=== PATIENT | female | born 1980 | race Caucasian/White ===

== ENCOUNTER 2018-09-04 22:58 | Emergency (ER) | payer BC, OTHER ==
[2018-09-04] MEDS ORDERED: IBUPROFEN 600 MG TAB PO STA (23:57)
[2018-09-04] MEDS ORDERED: ACETAMINOPHEN TAB 500 MG TAB PO STA (23:57)
[2018-09-04] MEDS ORDERED: MENTHOL (NICE) LOZENGE MUCOUS MEM STA (23:57)
[2018-09-04] MEDS ORDERED: BENZONATATE 100 MG CAP PO STA (23:57)
--- NOTE | 2018-09-05 01:17 | XR ---
EXAMINATION TYPE: XR chest 2V DATE OF EXAM: 09/05/2018 COMPARISON: NONE HISTORY: Chest pain TECHNIQUE: Frontal and lateral views of the chest are obtained. FINDINGS: Heart and mediastinum are normal. Lungs are clear. Diaphragm is normal. Bony thorax appear s normal. IMPRESSION: Normal chest
--- NOTE | 2018-09-05 02:05 | ED ---
URI HPI - General Chief Complaint: Upper Respiratory Infection Stated Complaint: Poss Flu Time Seen by Provider: 09/04/18 23:50 Source: patient Mode of arrival: ambulatory Limitations: no limitations - History of Present Illness Initial Comments: 38-year-old female patient presents to the emergency department today for evaluation of cough, sore throat, and fever. Patient states her daughter is currently being treated on the pediatric unit for influenza A. Patient states that she started with symptoms early this morning. Patient states have progressively worsened throughout the day. Patient is reporting a persistent cough with clear sputum production. Shows have history of asthma and has been taking her asthma medications as directed. She has been using her inhaler throughout the day. States that she has taken Mucinex for symptom relief. Denies taking antipyretic medication. She did have one episode of posttussive vomiting. Denies any abdominal pain, constipation, or diarrhea. Patient denies any recent rash, shortness breath, chest pain, abdominal pain, back pain, numbness, tingling, dizziness, weakness, hematuria, dysuria, urinary urgency, urinary frequency, headache, visual changes, or any other complaints. - Related Data Home Medications Medication Instructions Recorded Confirmed Albuterol Nebulized [Ventolin 2.5 mg INHALATION RT-QID PRN 09/04/18 09/04/18 Nebulized] Albuterol Sulfate [Proair Hfa] 2 puff INHALATION RT-QID PRN 09/04/18 09/04/18 Beclomethasone Dipropionate [Qvar 2 puff INHALATION RT-BID 09/04/18 09/04/18 80 mcg] Benzonatate [Tessalon Perles] 100 mg PO TID PRN 09/04/18 09/04/18 Budesonide [Budesonide Nasal Jenners] 1 spray EA NOSTRIL BID 09/04/18 09/04/18 Labetalol [Trandate] 100 mg PO BID 09/04/18 09/04/18 Loratadine 10 mg PO DAILY 09/04/18 09/04/18 Szq-Htcq-Hllvq Acid 1 cap PO DAILY 09/04/18 09/04/18 [-U Capsule (formulary)] guaiFENesin [Mucinex] 1,200 mg PO Q12H 09/04/18 09/04/18 Previous Rx's Medication Instructions Recorded Benzonatate [Tessalon Perles] 100 mg PO TID #15 cap 09/05/18 Oseltamivir [Tamiflu] 75 mg PO Q12HR #10 cap 09/05/18 Allergies Allergy/AdvReac Type Severity Reaction Status Date / Time mushroom Allergy Swelling Verified 09/04/18 23:19 Review of Systems ROS Statement: Those systems with pertinent positive or pertinent negative responses have been documented in the HPI. ROS Other: All systems not noted in ROS Statement are negative. Past Medical History Past Medical History: Asthma, Hypertension Additional Past Medical History / Comment(s): allergies. chronic sinusitis. gestational diabetes. History of Any Multi-Drug Resistant Organisms: None Reported Past Surgical History: Section Past Psychological History: No Psychological Hx Reported Smoking Status: Never smoker Past Alcohol Use History: None Reported Past Drug Use History: None Reported General Exam Limitations: no limitations General appearance: alert, in no apparent distress, other (This is a well- developed, well-nourished adult female patient in no acute distress. Vital signs upon presentation are temperature 103.1F, pulse 124, respirations 20, blood pressure 154/83, pulse ox 96% on room air.) Eye exam: Present: normal appearance, PERRL, EOMI. Absent: scleral icterus, conjunctival injection, periorbital swelling ENT exam: Present: normal exam, normal oropharynx, mucous membranes moist, TM's normal bilaterally Respiratory exam: Present: normal lung sounds bilaterally. Absent: respiratory distress, wheezes, rales, rhonchi, stridor Cardiovascular Exam: Present: normal rhythm, tachycardia, normal heart sounds. Absent: systolic murmur, diastolic murmur, rubs, gallop, clicks GI/Abdominal exam: Present: soft, normal bowel sounds. Absent: distended, tenderness, guarding, rebound, rigid Neurological exam: Present: alert, oriented X3, CN II-XII intact Psychiatric exam: Present: normal affect, normal mood Skin exam: Present: warm, dry, intact, normal color. Absent: rash Course Vital Signs 09/04/18 09/05/18 09/05/18 23:03 01:00 02:21 Temperature 103.1 F H 99.3 F 98.9 F Pulse Rate 124 H 101 H 77 Respiratory 20 20 18 Rate Blood Pressure 154/83 138/78 133/74 O2 Sat by Pulse 96 97 98 Oximetry Medical Decision Making - Medical Decision Making 38-year-old female patient presents to the emergency department today for evaluation of cough, nasal congestion, sore throat and fever. Physical examination reveals clear equal lung sounds. Pharyngeal erythema. Patient did have temperature 103F upon arrival. She was tachycardic with this. Influenza testing was positive. Chest x-ray showed no acute cardio pulmonary process. Patient does report symptom improvement with antipyretic medication and Tessalon Perles. She was educated regarding side effects and efficacy of Tamiflu. She does request to receive this medication. She'll be discharged home at this time with prescription for Tamiflu, Tessalon Perles, and education regarding supportive care. Return parameters were discussed in detail. She verbalizes understanding and agrees with this plan. - Lab Data Lab Results 09/04/18 Range/Units 23:28 Influenza Type A RNA Detected H (Not Detectd) Influenza Type B (PCR) Not Detected (Not Detectd) - Radiology Data Radiology results: report reviewed, image reviewed Two-view x-ray of the chest is obtained. Report is reviewed in its entirety. Impression by Dr. Mccormick shows heart and mediastinum are normal. Lungs are clear. Diaphragm is normal. Bony thorax appears normal. Normal chest. Disposition Clinical Impression: Influenza A Disposition: HOME SELF-CARE Condition: Good Instructions (If sedation given, give patient instructions): Influenza (ED) Additional Instructions: Increase fluids. Take Tylenol Motrin for fever control. Use rocy-dkp-qejlasu nasal decongestants to aid with symptom relief. Complete medications as prescribed. Follow-up with your primary care physician for recheck in 1-2 days. Return to the emergency department immediately for any new, worsening, or concerning symptoms. Prescriptions: Benzonatate [Tessalon Perles] 100 mg PO TID #15 cap Oseltamivir [Tamiflu] 75 mg PO Q12HR #10 cap Is patient prescribed a controlled substance at d/c from ED?: No Referrals: Los Epps MD [Primary Care Provider] - 1-2 days Time of Disposition: 02:05
[2018-09-05 02:22] VITALS: BP 133/74; PULSE 77; RESP 18; TEMP 98.9
== END 2018-09-05 02:22 | disposition home or self-care (01) ==
LOC: EC 22:58
DX: J10.1 Influenza due to other identified influenza virus with other respiratory manifestations (principal); R00.0 Tachycardia, unspecified; J45.909 Unspecified asthma, uncomplicated; I10 Essential (primary) hypertension; Z79.51 Long term (current) use of inhaled steroids; Z79.899 Other long term (current) drug therapy; Z91.018 Allergy to other foods
CPT/HCPCS: 71046; 87502; 99283

== ENCOUNTER → 2018-09-29 | Outpatient (CLI) | payer BC | END | disposition home or self-care (01) | LOC: LABPAT 11:33 | PROVIDERS: ATTEND Otolaryngology | DX: Z01.818 Encounter for other preprocedural examination (principal); I10 Essential (primary) hypertension | CPT/HCPCS: 93005 ==

== ENCOUNTER → 2019-01-03 | Outpatient (CLI) | payer BC ==
[2019-01-03 17:05] LABS: HCT 38.2 % (34.0-46.0); HGB 12.6 gm/dL (11.4-16.0); Mean Platelet Volume 7.7; Platelet Count 345 k/uL (150-450); RBC 4.35 m/uL (3.80-5.40); RDW 13.2 % (11.5-15.5); WBC 7.1 k/uL (3.8-10.6)
[2019-01-03 18:21] LABS: Eosinophils # (M) 0.07 k/uL (0-0.7); Lymphocytes # (M) 1.56 k/uL (1.0-4.8); Monocytes # (M) 0.43 k/uL (0-1.0); Neutrophils # (M) 5.04 k/uL (1.3-7.7); Neutrophils % (M) 71 %; Nucleated Red Blood Cells 0 /100 WBC (0-0); Total Cells Counted 100
[2019-01-03 18:22] LABS: Polychromasia Present
[2019-01-04 01:25] LABS: Immunoglobulin E 20.8 IU/mL (0.00-114.00)
== END | disposition home or self-care (01) ==
LOC: LABWHC1 16:20
PROVIDERS: ATTEND Allergy & Immunology
DX: J45.40 Moderate persistent asthma, uncomplicated (principal)
CPT/HCPCS: 36415; 82784; 82785; 85025

== ENCOUNTER → 2019-05-23 | Outpatient (CLI) | payer BC ==
--- NOTE | 2019-05-24 10:09 | MM ---
Reason for exam: screening (asymptomatic). Baseline mammogram. History: Patient had first child at age 37. Family history of breast cancer in maternal grandmother. Took hormonal contraceptives for 15 years. Took other hormone for 1 year 2 months. Physical Findings: Nurse did not find any significant physical abnormalities on exam. MG Screening Mammo w CAD Bilateral CC and MLO view(s) were taken. There are scattered fibroglandular densities. No suspicious abnormality. These results were verbally communicated with the patient and result sheet given to the patient on 05/23/19. ASSESSMENT: Negative, BI-RAD 1 RECOMMENDATION: Routine screening mammogram of both breasts in 1 year.
== END | disposition home or self-care (01) ==
LOC: RADMAMWWP 13:32
PROVIDERS: ATTEND Obstetrics & Gynecology
DX: Z12.31 Encounter for screening mammogram for malignant neoplasm of breast (principal)
CPT/HCPCS: 77067

== ENCOUNTER 2019-10-26 15:51 | Outpatient (CLI) | payer BC | END 2019-10-26 17:15 | disposition home or self-care (01) | LOC: FBPOP 15:51 | PROVIDERS: ATTEND Obstetrics & Gynecology | DX: O99.810 Abnormal glucose complicating pregnancy (principal); Z3A.00 Weeks of gestation of pregnancy not specified | CPT/HCPCS: 59025 ==

== ENCOUNTER 2019-11-06 10:10 | Outpatient (CLI) | payer BC ==
[2019-11-06 10:51] LABS: Glucose,Whole Blood 95 mg/dL (75-99)
[2019-11-06 11:15] VITALS: BP 130/67; PULSE 85; RESP 16; TEMP 97.9
--- NOTE | 2019-11-06 11:48 | US ---
EXAMINATION TYPE: US OB BPP wo non-stress DATE OF EXAM: 11/06/2019 COMPARISON: NONE CLINICAL HISTORY: Non-reactive NST. Third trimester . EXAM PERFORMED: Transabdominal (TA) BPP PARAMETERS: HEART RATE: 140 bpm RHYTHM: Normal HARRY: 10.1 cm DIAPHRAGM IMAGED: Yes BPP SCORIN. Breathin (1 episode of breathing of 30 second duration in 30 minutes of scanning time) 2. Movement: 2 (at least 3 discrete body movements in 30 minutes) 3. Tone: 2 (1 episode of active flexion/extension of limb) 4. HARRY: 2 (HARRY index > 5cm) TOTAL SCORE: 8 / 8 Impression: Normal biophysical profile.
== END 2019-11-06 11:58 | disposition home or self-care (01) ==
LOC: FBPOP 10:10
PROVIDERS: ATTEND Obstetrics & Gynecology
DX: O24.419 Gestational diabetes mellitus in pregnancy, unspecified control (principal); Z3A.00 Weeks of gestation of pregnancy not specified
CPT/HCPCS: 59025; 76819

== ENCOUNTER 2019-11-08 09:41 | Outpatient (CLI) | payer BC | END 2019-11-08 10:15 | disposition home or self-care (01) | LOC: FBPOP 09:41 | PROVIDERS: ATTEND Obstetrics & Gynecology | DX: O24.419 Gestational diabetes mellitus in pregnancy, unspecified control (principal); Z3A.00 Weeks of gestation of pregnancy not specified | CPT/HCPCS: 59025 ==

== ENCOUNTER 2019-12-07 06:00 | Inpatient (IN) | payer BC ==
[2019-12-07 06:28] LABS: Glucose,Whole Blood 94 mg/dL (75-99)
[2019-12-07] MEDS ORDERED: OXYTOCIN 10 UNIT/ML 1 ML VIAL IM PRN (06:49)
[2019-12-07] MEDS ORDERED: METHYLERGONOVINE 0.2 MG/ML 1 ML AMP IM PRN (06:49)
[2019-12-07] MEDS ORDERED: CARBOPROST TROMETHAMINE 250 MCG/ML 1 ML AMP IM PRN (06:49)
[2019-12-07] MEDS ORDERED: LIDOCAINE 0.5% (PF) 5 MG/ML (50 ML SDV) SQ PRN (06:49)
[2019-12-07] MEDS ORDERED: TERBUTALINE 1 MG/ML VIAL SQ PRN (06:49)
[2019-12-07 06:59] LABS: Basophils % (A) 0 %; Eosinophils # (A) 0.1 k/uL (0-0.7); Eosinophils % (A) 1 %; HCT 35.5 % (34.0-46.0); Lymphocytes # (A) 1.4 k/uL (1.0-4.8); Lymphocytes % (A) 14 %; MCH 30.2 pg (25.0-35.0); MCHC 33.9 g/dL (31.0-37.0); MCV 89.2 fL (80.0-100.0); Mean Platelet Volume 8.8; Monocytes # (A) 0.4 k/uL (0-1.0); Monocytes % (A) 4 %; Neutrophils # (A) 7.9 k/uL (1.3-7.7); Neutrophils % (A) 78 %; Platelet Count 214 k/uL (150-450); RBC 3.98 m/uL (3.80-5.40); RDW 15.2 % (11.5-15.5); WBC 10.1 k/uL (3.8-10.6)
[2019-12-07] MEDS ORDERED: OXYTOCIN 30 UNITS/500 ML NS 30 UNIT in SALINE 1 500ML.BAG IV SCH (07:00)
--- NOTE | 2019-12-07 07:34 | P.HPOB ---
History of Present Illness H&P Date: 12/07/19 Chief Complaint: Normal labor 39-year-old presents for induction of labor at 39 weeks. Her cervix is once and redundant, 70% effaced, and -2 station. She is ed irregularly. heart tones 130 with moderate variability and reactive. Review of Systems All systems: negative Constitutional: Denies chills, Denies fever Eyes: denies blurred vision, denies pain Ears, nose, mouth and throat: Denies headache, Denies sore throat Cardiovascular: Denies chest pain, Denies shortness of breath Respiratory: Denies cough Gastrointestinal: Denies abdominal pain, Denies diarrhea, Denies nausea, Denies vomiting Genitourinary: Denies dysuria, Denies hematuria Musculoskeletal: Denies myalgias Integumentary: Denies pruritus, Denies rash Neurological: Denies numbness, Denies weakness Psychiatric: Denies anxiety, Denies depression Endocrine: Denies fatigue, Denies weight change Past Medical History Past Medical History: Asthma, Hypertension Additional Past Medical History / Comment(s): Obstetrical history first she had a vasa previa with velamentous cord insertion was delivered at 35 weeks and 6 days with a section. This is her second . She's had care with me since the first trimester. Blood type is O+, antibodies negative, rubella immune, hepatitis B negative, RPR nonreactive, HIV negative. She was diagnosed with gestational diabetes and has been followed by maternal medicine. She is on insulin 4 times a day. Sugars have been well-controlled. She also has underlying hypertension and has been on labetalol 100 mg twice daily. History of Any Multi-Drug Resistant Organisms: None Reported Past Surgical History: Adenoidectomy, Section Additional Past Surgical History / Comment(s): daniel Past Anesthesia/Blood Transfusion Reactions: No Reported Reaction Past Psychological History: No Psychological Hx Reported Smoking Status: Former smoker Past Alcohol Use History: None Reported Additional Past Alcohol Use History / Comment(s): brief period of smoking as a teenager Past Drug Use History: None Reported - Past Family History Father Family Medical History: AFIB, Cancer Mother Family Medical History: Diabetes Mellitus, Hypertension Additional Family Medical History / Comment(s): hx of depression, neurological disorder Medications and Allergies Home Medications Medication Instructions Recorded Confirmed Type Labetalol [Trandate] 100 mg PO BID 01/21/19 04/24/20 History Loratadine 10 mg PO DAILY 09/04/18 12/07/19 History Fkf-Tmqd-Ijxyc Acid 1 cap PO DAILY 09/04/18 12/07/19 History [-U Capsule (formulary)] Aspirin [Children's Aspirin] 81 mg PO DAILY 10/26/19 12/07/19 History Montelukast Chew [Singulair Chew] 5 mg PO HS 10/26/19 12/07/19 History Fluticasone Nasal Means [Flonase 1 spray EA NOSTRIL DAILY 12/07/19 12/07/19 History Nasal Means] Insulin Aspart [NovoLOG Flexpen] TID-W/MEALS 12/07/19 History Insulin NPH Hum/Reg Insulin Hm 52 units SQ HS 12/07/19 12/07/19 History [Relion Novolin 70-30 Flexpen] Allergies Allergy/AdvReac Type Severity Reaction Status Date / Time mushroom Allergy Swelling Verified 12/07/19 06:38 Exam Osteopathic Statement: *. No significant issues noted on an osteopathic structural exam other than those noted in the History and Physical/Consult. Vital Signs Temp Pulse Resp BP Pulse Ox 12/07/19 06:35 97.1 F L 87 16 133/78 100 Intake and Output 12/06/19 12/07/19 12/07/19 22:59 06:59 14:59 Other: Weight 122.924 kg Heart: Regular rate and rhythm Lungs: Clear to auscultation bilaterally Abdomen: Soft, nontender Extremities: Negative Homans sign Results Result Diagrams: 12/07/19 06:46 Abnormal Lab Results - Last 24 Hours (Table) 12/07/19 Range/Units 06:46 Neutrophils # 7.9 H (1.3-7.7) k/uL Assessment and Plan (1) Normal labor Current Visit: Yes Status: Acute Code(s): O80 - ENCOUNTER FOR FULL-TERM UNCOMPLICATED DELIVERY; Z37.9 - OUTCOME OF DELIVERY, UNSPECIFIED SNOMED Code(s): 01707904 (2) Hypertension Current Visit: Yes Status: Acute Code(s): I10 - ESSENTIAL (PRIMARY) HYPERTENSION SNOMED Code(s): 27030865 (3) Gestational diabetes mellitus, class A2 Current Visit: Yes Status: Acute Code(s): O24.419 - GESTATIONAL DIABETES MELLITUS IN , UNSP CONTROL SNOMED Code(s): 74760983 Plan: 1. Induction of labor with amniotomy and Pitocin- I have reviewed the risks of vaginal after section with the patient and her . 2. Monitor blood sugars every 2 hours until active labor and then every hour 3. Continue labetalol 100 mg twice daily 4. Anticipate normal vaginal delivery
[2019-12-07 08:10] LABS: Glucose,Whole Blood 98 mg/dL (75-99)
[2019-12-07] MEDS: LACTATED RINGERS 1,000 ML IV SCH ×2 (08:15→15:28)
[2019-12-07 10:23] LABS: Glucose,Whole Blood 82 mg/dL (75-99)
[2019-12-07 12:30] LABS: Glucose,Whole Blood 80 mg/dL (75-99)
[2019-12-07 14:23] LABS: Glucose,Whole Blood 96 mg/dL (75-99)
[2019-12-07] MEDS ORDERED: ROPIVACAINE 100 MG, fentaNYL (PF) 200 MCG in SODIUM CHLORIDE 0.9% 76 ML EPIDURAL ONE (14:26)
[2019-12-07 15:42] LABS: Glucose,Whole Blood 95 mg/dL (75-99)
[2019-12-07 17:06] LABS: Glucose,Whole Blood 100 mg/dL (75-99)
[2019-12-07] MEDS ORDERED: HYDROCORTISONE 2.5% RECTAL CREAM 30 GM TUBE RECTAL PRN (18:45)
[2019-12-07] MEDS ORDERED: diphenhydrAMINE 25 MG CAP PO PRN (18:45)
[2019-12-07] MEDS ORDERED: ZOLPIDEM 5 MG TAB PO PRN (18:45)
[2019-12-07] MEDS ORDERED: diphenhydrAMINE 50 MG CAP PO PRN (18:45)
[2019-12-07] MEDS ORDERED: WITCH HAZEL 1 EACH MED..PAD TOPICAL PRN (18:45)
[2019-12-07] MEDS ORDERED: SIMETHICONE 80 MG CHEWABLE PO PRN (18:45)
[2019-12-07] MEDS ORDERED: OXYTOCIN 20 UNITS/1000 ML NS 1,000 ML IV SCH (18:45)
[2019-12-07] MEDS ORDERED: BENZOCAINE/MENTHOL SPRAY 1 GM/SPRAY AEROSOL TOPICAL PRN (18:45)
[2019-12-07] MEDS ORDERED: diphenhydrAMINE 50 MG/ML 1 ML VIAL IVP PRN ×2 (18:45)
[2019-12-07] MEDS ORDERED: LANOLIN CREAM 5 GM TUBE TOPICAL PRN (18:45)
--- NOTE | 2019-12-07 18:45 | P.PROBDLV ---
Vaginal Delivery Note - . Vaginal Delivery Note: 39-year-old presents for induction of labor at 39 weeks. Her cervix is once and redundant, 70% effaced, and -2 station. She is ed irregularly. heart tones 130 with moderate variability and reactive. Amniotomy was performed at 7:06 AM and clear fluid noted. Pitocin was also started. Around noon she was 3 cm dilated, 70% effaced, and -2 station on 16 milliunits of Pitocin. She was starting to get uncomfortable but distracting at the bedside. When she was about 6 cm she got an epidural and was comfortable with that. Her blood pressure did drop some in the heart tones started to have some repetitive variables, remained with moderate variability. The variable decelerations resolved with position changes and IV fluid bolus. Her cervix was completely dilated at 1744. She pushed, delivered viable male infant over intact perineum under epidural anesthesia at 1822. Head delivered OA, anterior shoulder delivered gentle downward guidance for by posterior shoulder and rest of body. Nose and mouth bulb suctioned, cord clamped and cut, placed mother's abdomen. Apgars 9, 9, weight 7 lbs. 8 oz. Placenta delivered spontaneously, intact with three-vessel cord at 1824. Vagina, cervix, perineum inspected. The old scar from her previous was also manually inspected and found to be intact. Secondary midline laceration was repaired with 3-0 Vicryl. Quantitative blood loss was 455 mL. Mother and baby in stable condition.
[2019-12-07] MEDS: MONTELUKAST 5 MG CHEWABLE PO SCH (21:31)
[2019-12-07] MEDS: LABETALOL 100 MG TAB PO SCH (21:51)
[2019-12-07] MEDS: SENNOSIDES-DOCUSATE SODIUM 1 EACH TAB PO SCH (21:53)
[2019-12-08] MEDS: ACETAMINOPHEN TAB 325 MG TAB PO PRN ×2 (03:03→08:20)
[2019-12-08] MEDS: LACTATED RINGERS 1,000 ML IV SCH (03:49)
[2019-12-08 05:42] LABS: Basophils % (A) 0 %; Eosinophils % (A) 0 %; HCT 30.7 % (34.0-46.0); HGB 10.4 gm/dL (11.4-16.0); Lymphocytes # (A) 1.2 k/uL (1.0-4.8); Lymphocytes % (A) 9 %; MCH 30.3 pg (25.0-35.0); MCHC 33.9 g/dL (31.0-37.0); MCV 89.5 fL (80.0-100.0); Mean Platelet Volume 9.9; Monocytes # (A) 0.6 k/uL (0-1.0); Monocytes % (A) 5 %; Neutrophils # (A) 10.9 k/uL (1.3-7.7); Neutrophils % (A) 83 %; Platelet Count 195 k/uL (150-450); RBC 3.44 m/uL (3.80-5.40); RDW 15.2 % (11.5-15.5); WBC 13.2 k/uL (3.8-10.6)
--- NOTE | 2019-12-08 07:59 | P.DS ---
Providers Date of admission: 12/07/19 06:21 Expected date of discharge: 12/08/19 Attending physician: Christine Azar Primary care physician: Stated None - Discharge Diagnosis(es) (1) Normal labor Current Visit: Yes Status: Resolved (2) Hypertension Current Visit: Yes Status: Acute (3) Gestational diabetes mellitus, class A2 Current Visit: Yes Status: Resolved (4) Normal vaginal delivery Current Visit: Yes Status: Acute Hospital Course: Patient presented for induction of labor. She underwent a normal vaginal delivery. Her course has been uncomplicated. She'll be discharged home day #1 in stable condition to follow-up with me in 6 weeks. Patient Condition at Discharge: Stable Plan - Discharge Summary New Discharge Prescriptions: New Ibuprofen [Motrin] 600 mg PO Q6HR PRN #30 tab PRN Reason: Mild Pain Or Fever >= 100.5 Labetalol [Trandate] 100 mg PO BID tab Discontinued Labetalol [Trandate] 100 mg PO BID Aspirin [Children's Aspirin] 81 mg PO DAILY No Action Ajb-Aibn-Fyspb Acid [-U Capsule (formulary)] 1 cap PO DAILY Loratadine 10 mg PO DAILY Montelukast Chew [Singulair Chew] 5 mg PO HS Fluticasone Nasal Coffeen [Flonase Nasal Coffeen] 1 spray EA NOSTRIL DAILY Insulin NPH Hum/Reg Insulin Hm [Relion Novolin 70-30 Flexpen] 52 units SQ HS Insulin Aspart [NovoLOG Flexpen] See Protocol SQ TID-W/MEALS Discharge Medication List Loratadine 10 mg PO DAILY 09/04/18 [History] Ufc-Cpyu-Iowef Acid [-U Capsule (formulary)] 1 cap PO DAILY 09/04/18 [History] Montelukast Chew [Singulair Chew] 5 mg PO HS 10/26/19 [History] Fluticasone Nasal Coffeen [Flonase Nasal Coffeen] 1 spray EA NOSTRIL DAILY 12/07/19 [History] Insulin Aspart [NovoLOG Flexpen] See Protocol SQ TID-W/MEALS 12/07/19 [History] Insulin NPH Hum/Reg Insulin Hm [Relion Novolin 70-30 Flexpen] 52 units SQ HS 12/07/19 [History] Ibuprofen [Motrin] 600 mg PO Q6HR PRN #30 tab 04/25/20 [Rx] Labetalol [Trandate] 100 mg PO BID tab 12/08/19 [Rx] Follow up Appointment(s)/Referral(s): Christine Azar DO [Doctor of Osteopathic Medicine] - 6 Weeks Discharge Disposition: HOME SELF-CARE
[2019-12-08] MEDS: SENNOSIDES-DOCUSATE SODIUM 1 EACH TAB PO SCH ×2 (08:21→20:23)
[2019-12-08] MEDS: LORATADINE 10 MG TAB PO SCH (08:21)
[2019-12-08] MEDS: LABETALOL 100 MG TAB PO SCH ×2 (08:21→20:22)
[2019-12-08] MEDS: IBUPROFEN 600 MG TAB PO PRN ×2 (16:09→22:38)
[2019-12-08] MEDS: MONTELUKAST 5 MG CHEWABLE PO SCH (20:22)
[2019-12-09] MEDS: ACETAMINOPHEN TAB 325 MG TAB PO PRN ×2 (04:18→18:30)
[2019-12-09] MEDS: LORATADINE 10 MG TAB PO SCH (08:03)
[2019-12-09] MEDS: IBUPROFEN 600 MG TAB PO PRN ×2 (08:03→14:55)
[2019-12-09] MEDS: LABETALOL 100 MG TAB PO SCH ×2 (08:03→18:31)
[2019-12-09 08:50] VITALS: PULSE 87; RESP 16
[2019-12-09 16:00] VITALS: BP 121/76; TEMP 98
== END 2019-12-09 18:43 | disposition home or self-care (01) | DRG 807 ==
LOC: 4FBP 06:21
PROVIDERS: ADMIT Obstetrics & Gynecology; ATTEND Obstetrics & Gynecology
PROC: 10E0XZZ Delivery of Products of Conception, External Approach (ICD-10-PCS; principal; 2019-12-07)
PROC: 109 Obstetrics, Pregnancy, Drainage (ICD-10-PCS; principal; 2019-12-07)
PROC: 0UQMXZZ Repair Vulva, External Approach (ICD-10-PCS; principal; 2019-12-07)
DX: O34.219 Maternal care for unspecified type scar from previous cesarean delivery (principal); Z37.0 Single live birth; O16.4 Unspecified maternal hypertension, complicating childbirth; O24.424 Gestational diabetes mellitus in childbirth, insulin controlled; J45.909 Unspecified asthma, uncomplicated; O99.52 Diseases of the respiratory system complicating childbirth; O76 Abnormality in fetal heart rate and rhythm complicating labor and delivery; O70.9 Perineal laceration during delivery, unspecified; Z3A.39 39 weeks gestation of pregnancy; Z79.82 Long term (current) use of aspirin; Z81.8 Family history of other mental and behavioral disorders; Z82.49 Family history of ischemic heart disease and other diseases of the circulatory system; Z83.3 Family history of diabetes mellitus; Z87.891 Personal history of nicotine dependence; Z91.018 Allergy to other foods
CPT/HCPCS: 85025; 86850; 86900; 86901; 88307

== ENCOUNTER → 2020-02-18 | Outpatient (CLI) | payer BC | END | disposition home or self-care (01) | LOC: LABWHC1 12:09 | PROVIDERS: ATTEND Family Medicine | DX: Z20.828 Contact with and (suspected) exposure to other viral communicable diseases (principal) ==

== ENCOUNTER → 2020-10-30 | Outpatient (CLI) | payer BC ==
--- NOTE | 2020-11-03 11:38 | MM ---
Reason for exam: screening (asymptomatic). Last mammogram was performed 1 year and 5 months ago. History: Patient had first child at age 37. Family history of breast cancer in maternal grandmother. Taking hormonal contraceptives for 15 years. Took other hormone for 1 year 2 months. Physical Findings: A clinical breast exam by your physician is recommended on an annual basis and results should be correlated with mammographic findings. MG Screening Mammo w CAD Bilateral CC and MLO view(s) were taken. XCCL view(s) were taken of the right breast. Prior study comparison: May 23, 2019, bilateral MG screening mammo w CAD. There are scattered fibroglandular densities. There is no discrete abnormality. ASSESSMENT: Negative, BI-RAD 1 RECOMMENDATION: Routine screening mammogram of both breasts in 1 year.
== END | disposition home or self-care (01) ==
LOC: RADMAMWWP 14:12
PROVIDERS: ATTEND Family Medicine
DX: Z12.31 Encounter for screening mammogram for malignant neoplasm of breast (principal)
CPT/HCPCS: 77067

== ENCOUNTER → 2022-05-14 | Outpatient (CLI) | payer BC ==
--- NOTE | 2022-05-17 09:13 | MM ---
Reason for Exam: Screening (asymptomatic). Last mammogram was performed 1 year(s) and 6 month(s) ago. Patient History: Menarche at age 13. First Full-Term at age 37. Late child-bearing (after 30). Currently using Hormonal Contraceptives, for 15 years. Maternal grandmother had breast cancer at or over age 50. Last menstrual period: 05/04/2022 Risk Values: Manasa 5 year model risk: 0.9%. NCI Lifetime model risk: 13.4%. Prior Study Comparison: 05/23/2019 Bilateral Screening Mammogram, [facility]. 10/30/2020 Bilateral Screening Mammogram, [facility]. Tissue Density: There are scattered fibroglandular densities. Findings: Analyzed By CAD. There is no suspicious group of microcalcifications or new suspicious mass in either breast. Overall Assessment: Negative, BI-RAD 1 Management: Screening Mammogram of both breasts in 1 year. A clinical breast exam by your physician is recommended on an annual basis and results should be correlated with mammographic findings. [facility] will attempt to contact patient to return for supplemental views and ultrasound if indicated. Electronically signed and approved by: [place] DO
== END | disposition home or self-care (01) ==
LOC: RADMAMWWP 09:21
PROVIDERS: ATTEND Obstetrics & Gynecology
DX: Z12.31 Encounter for screening mammogram for malignant neoplasm of breast (principal); Z80.3 Family history of malignant neoplasm of breast
CPT/HCPCS: 77063; 77067

== ENCOUNTER → 2023-06-29 | Outpatient (CLI) | payer BC ==
--- NOTE | 2023-06-30 11:01 | MM ---
Reason for Exam: Screening (asymptomatic). Last mammogram was performed 1 year(s) and 2 month(s) ago. Patient History: Menarche at age 13. First Full-Term at age 37. Late child-bearing (after 30). Patient used Hormonal Contraceptives for 15 years. Maternal grandmother had breast cancer at or over age 50. Last menstrual period: 06/08/2023 Risk Values: Manasa 5 year model risk: 1.0%. NCI Lifetime model risk: 13.2%. Prior Study Comparison: 05/23/2019 Bilateral Screening Mammogram, [facility]. 10/30/2020 Bilateral Screening Mammogram, [facility]. 05/14/2022 Bilateral MG 3D screening mammo w/cad, [facility]. Tissue Density: The breast tissue is heterogeneously dense. This may lower the sensitivity of mammography. Findings: Analyzed By CAD. There is no suspicious group of microcalcifications or new suspicious mass in either breast. Overall Assessment: Negative, BI-RAD 1 Management: Screening Mammogram of both breasts in 1 year. . Patient should continue monthly self-breast exams. A clinical breast exam by your physician is recommended on an annual basis. This exam should not preclude additional follow-up of suspicious palpable abnormalities. Note on Manasa scores and lifetime risk: 1. A Manasa score greater than 3% is considered moderate risk. If this is the case, consider specialist referral to assess eligibility for a risk reducing agent. 2. If overall lifetime risk for the development of breast cancer is 20% or higher, the patient may qualify for future screening with alternating mammogram and breast MRI. Electronically signed and approved by: Alan Workman M.D. Radiologis
== END | disposition home or self-care (01) ==
LOC: RADMAMWWP 10:17
PROVIDERS: ATTEND Obstetrics & Gynecology
DX: Z12.31 Encounter for screening mammogram for malignant neoplasm of breast (principal); Z80.3 Family history of malignant neoplasm of breast
CPT/HCPCS: 77063; 77067

== ENCOUNTER → 2024-08-10 | Outpatient (CLI) | payer BC ==
--- NOTE | 2024-08-16 17:45 | MM ---
Reason for Exam: Screening (asymptomatic). Last mammogram was performed 1 year(s) and 1 month(s) ago. Patient History: Menarche at age 13. First Full-Term at age 37. Late child-bearing (after 30). Patient has history of breast feeding. Patient used Hormonal Contraceptives for 15 years. Maternal grandmother had breast cancer at or over age 50. Last menstrual period: 06/02/2024 Risk Values: Manasa 5 year model risk: 1.1%. NCI Lifetime model risk: 13.1%. Prior Study Comparison: 10/30/2020 Bilateral Screening Mammogram, [facility]. 05/14/2022 Bilateral MG 3D screening mammo w/cad, [facility]. 06/29/2023 Bilateral MG 3D screening mammo w/cad, [facility]. Tissue Density: There are scattered areas of fibroglandular density. Findings: Analyzed By CAD. The pattern is symmetrical. Pattern is stable. No significant interval change. No suspicious groups of microcalcifications, spiculated or lobular masses, architectural distortion or other secondary signs of malignancy are mammographically apparent. Overall Assessment: Benign, BI-RAD 2 Management: Screening Mammogram of both breasts in 1 year. A negative mammogram report should not preclude additional follow up of suspicious palpable abnormalities. Patient should continue monthly self breast exam. A clinical breast exam by your physician is recommended on an annual basis and results should be correlated with mammographic findings. Note on Manasa scores and lifetime risk: 1. A Manasa score greater than 3% is considered moderate risk. If this is the case, consider specialist referral to assess eligibility for a risk reducing agent. 2. If overall lifetime risk for the development of breast cancer is 20% or higher, the patient may qualify for future screening with alternating mammogram and breast MRI. [facility], , 08/16/2024 5:42 PM. Electronically signed and approved by: Angel Jerez D.O. Radiologis
== END | disposition home or self-care (01) ==
LOC: RADMAMWWP 10:32
PROVIDERS: ATTEND Obstetrics & Gynecology
DX: Z12.31 Encounter for screening mammogram for malignant neoplasm of breast (principal); Z80.3 Family history of malignant neoplasm of breast; R92.323 Mammographic fibroglandular density, bilateral breasts
CPT/HCPCS: 77063; 77067